=== PATIENT | female | born 1950 | race Caucasian/White ===

== ENCOUNTER 2020-07-14 08:24 | Day surgery (SDC) | payer MEDICARE ==
[~2020-07-14] VITALS: Ht 154.9 cm; Wt 69.3 kg
[~2020-07-14 08:24] MED LIST: ESTRIOL TOP; VIT1CAPS12 PO; VITAMIN D31000 UNI1 PO; Vitamin B-1250 MCG PO
--- NOTE | 2020-07-14 10:14 | NUR ---
07/14/20 1014 Yany Lemus PT REFUSED MULTIPLE OFFERS OF PO FLUIDS.
== END 2020-07-14 10:15 | disposition home or self-care (01) ==
LOC: ORSCSDS 08:24
PROVIDERS: Internal Medicine Gastroenterology
PROC: 0DBL8ZX Excision of Transverse Colon, Via Natural or Artificial Opening Endoscopic, Diagnostic (ICD-10-PCS; principal; 2020-07-14 10:00)
DX: Z12.11 Encounter for screening for malignant neoplasm of colon (principal); Z86.010 Personal history of colon polyps; D12.3 Benign neoplasm of transverse colon; K57.30 Diverticulosis of large intestine without perforation or abscess without bleeding; K64.8 Other hemorrhoids
CPT/HCPCS: 88305; J2704; J7120